=== PATIENT | female | born 1960 | race Caucasian/White ===

== ENCOUNTER 2017-10-16 08:51 | Day surgery (SDC) | payer MEDICARE, MEDICAID ==
[2017-10-12 10:47] LABS: BASOPHILS % (AUTO) 0.3 % (0-1); CLARITY,URINE CLEAR (Clear); COLOR,URINE YELLOW (Yellow); EOSINOPHILS # (AUTO) 0.2 X10'3 (0-0.9); EOSINOPHILS % (AUTO) 3.7 % (0-6); GLUCOSE, URINE NEGATIVE (Neg); KETONES,URINE NEGATIVE (Neg); LEUKOCYTE ESTERASE ,URINE NEGATIVE (Neg); LYMPHOCYTES # (AUTO) 2.5 X10'3 (1.1-4.8); LYMPHOCYTES % (AUTO) 39.9 % (21-51); MEAN CORPUSCULAR HEMOGLOBIN 29.8 PG (27.0-31.0); MEAN CORPUSCULAR HGB CONC 33.3 % (33.0-36.5); MEAN CORPUSCULAR VOLUME 89.3 FL (78-98); MEAN PLATELET VOLUME 8.3 FL (7.4-10.4); MONOCYTES # (AUTO) 0.5 X10'3 (0-0.9); MONOCYTES % (AUTO) 7.4 % (2-12); NEUTROPHILS # (AUTO) 3.1 X10'3 (1.8-7.7); NEUTROPHILS % (AUTO) 48.7 % (42-75); NITRITES, URINE NEGATIVE (Neg); OCCULT BLOOD,URINE MODERATE (Neg); PH,URINE 6.5 (4.8-8.0); PRE OP HEMATOCRIT 42.4 % (35.0-45.0); PRE OP HEMOGLOBIN 14.1 g/dL (12.0-16.0); PRE OP PLATELET COUNT 239 X10'3 (140-440); PROTEIN,URINE NEGATIVE (Neg); RED BLOOD COUNT 4.74 X10'6 (4.20-5.60); RED CELL DISTRIBUTION WIDTH 11.9 % (11.5-14.5); UROBILINOGEN,URINE 0.2 E.U/dL (0.2-1.0)
[2017-10-12 10:52] LABS: UA COLLECTION TYPE CLN CATCH MIDSTREAM
[2017-10-12 10:56] LABS: BACTERIA,URINE FEW /HPF (Neg); SQUAMOUS EPITHELIAL CELL,UR MODERATE /LPF (FEW); WBC,URINE 0-4 /HPF (0-4)
[2017-10-12 11:02] LABS: ALBUMIN 3.7 G/DL (3.4-5.0); ALBUMIN/GLOBULIN RATIO 1.1 (1.1-1.5); ALKALINE PHOSPHATASE 128 IU/L (46-116); BLOOD UREA NITROGEN 16 MG/DL (7-18); BUN/CREATININE RATIO 18.4 (6.6-38.0); CHLORIDE 107 MMOL/L (99-107); CREATININE 0.87 MG/DL (0.40-0.90); PRE OP ALT 21 U/L (30-65); PRE OP ANION GAP 10 (8-16); PRE OP AST 24 U/L (10-37); PRE OP BILIRUB, TOTAL 0.5 MG/DL (0.0-1.0); PRE OP GLUCOSE 144 MG/DL (70-104); PRE OP POTASSIUM 3.7 MMOL/L (3.4-5.1); PRE OP SODIUM 141 MMOL/L (135-145); TOTAL PROTEIN 7.1 G/DL (6.4-8.2); eGFR 67 ML/MIN
[~2017-10-16] VITALS: Ht 167.6 cm; Wt 89.6 kg
[2017-10-16] VITALS (19 sets, daily range): BP systolic 97–139; BP diastolic 35–84
[~2017-10-16 08:51] MED LIST: ESTR1TAB23 PO; LORA1TAB PO; LOSA25TA96 PO; MEDR2.5T PO; METH-603 PO; OMEP-50 PO; albuterol 2.5 MG/3 ML nebule NEB ONE; ceFAZolin inj. 2,000 MG in dextrose 5%-water 100 ML IV ONE; famotidine 20mg tablet PO ONE; ringers solution, lacted 1,000 ML IV SCH
[2017-10-16] MEDS ORDERED: propofol inj 20 ML IV ONE (10:48)
[2017-10-16] MEDS ORDERED: LIDOcaine 2% (20mg/ml) 5ml vial ONE (10:48)
[2017-10-16] MEDS ORDERED: midazolam 2 mg/2 ml injection ONE (10:49)
[2017-10-16] MEDS ORDERED: rocuronium 10mg/ml inj IV ONE (10:49)
[2017-10-16] MEDS ORDERED: fentaNYL /PF 50mcg/ml 5ml ampule ONE (10:49)
[2017-10-16] MEDS ORDERED: sevoflurane 250ml liquid IH ONE (11:26)
[2017-10-16] MEDS ORDERED: neostigmine in sterile water inj 5 MG/5 ML syringe IJ ONE (11:26)
[2017-10-16] MEDS ORDERED: clindamycin phosphate 150mg/ml inj. ONE (11:43)
[2017-10-16] MEDS ORDERED: glycopyrrolate 0.2mg/ml inj ONE (11:54)
[2017-10-16] MEDS ORDERED: ringers solution, lacted 1,000 ML IV SCH (12:12)
[2017-10-16] MEDS ORDERED: ondansetron/PF 4mg/2ml inj IV PRN (12:15)
[2017-10-16] MEDS ORDERED: HYDROmorphone inj. 0.5 MG/0.5 ML DISP.SYRIN IV PRN (12:15)
[2017-10-16] MEDS ORDERED: ondansetron/PF 4mg/2ml inj ONE (12:38)
[2017-10-16] MEDS: fentaNYL/PF 50MCG/1 ML 2ML syringe IV PRN ×4 (13:17→13:36)
[2017-10-16] MEDS ORDERED: HYDROmorphone 1 mg/ml syringe ONE (13:39)
[2017-10-16] MEDS: HYDROmorphone 1 mg/ml syringe IV PRN ×2 (13:46→13:52)
[2017-10-16] MEDS ORDERED: acetaminophen w/codeine (30MG) #3 tablet PO ONE (14:30)
== END 2017-10-16 15:16 | disposition home or self-care (01) ==
LOC: PAS 08:51
PROVIDERS: ATTEND Surgery
DX: K80.12 Calculus of gallbladder with acute and chronic cholecystitis without obstruction (principal); K66.0 Peritoneal adhesions (postprocedural) (postinfection); K82.8 Other specified diseases of gallbladder; J45.998 Other asthma; I10 Essential (primary) hypertension; M19.90 Unspecified osteoarthritis, unspecified site; E66.9 Obesity, unspecified; G89.29 Other chronic pain; F32.9 Major depressive disorder, single episode, unspecified; F41.9 Anxiety disorder, unspecified; Z88.2 Allergy status to sulfonamides; Z88.5 Allergy status to narcotic agent; Z68.31 Body mass index [BMI] 31.0-31.9, adult; Z88.6 Allergy status to analgesic agent; Z79.891 Long term (current) use of opiate analgesic; Z96.653 Presence of artificial knee joint, bilateral; Z90.89 Acquired absence of other organs; Z88.0 Allergy status to penicillin; Z79.01 Long term (current) use of anticoagulants; Z88.1 Allergy status to other antibiotic agents; Z88.8 Allergy status to other drugs, medicaments and biological substances; Z98.890 Other specified postprocedural states; Z79.899 Other long term (current) drug therapy
CPT/HCPCS: 36415; 47562; 80053; 81001; 85025; 85610; 85730; 93005; A6251; J0690; J1170; J2001; J2250; J2405; J2704; J2710; J3010; J3490; J7060; J7120; A7000

== ENCOUNTER 2018-03-21 18:13 | Emergency (ER) | payer MEDICARE, MEDICAID ==
[~2018-03-21] VITALS: Ht 167.6 cm; Wt 76.7 kg
[~2018-03-21 18:13] MED LIST changes: -albuterol 2.5 MG/3 ML nebule NEB ONE; -ceFAZolin inj. 2,000 MG in dextrose 5%-water 100 ML IV ONE; -famotidine 20mg tablet PO ONE; -ringers solution, lacted 1,000 ML IV SCH
[2018-03-21 19:58] VITALS: BP 115/76
[2018-03-21 20:27] LABS: BASOPHILS % (AUTO) 0 % (0-1); EOSINOPHILS # (AUTO) 0.1 X10'3 (0-0.9); EOSINOPHILS % (AUTO) 1.2 % (0-6); HEMATOCRIT 42.9 % (35.0-45.0); HEMOGLOBIN 14.6 g/dl (12.0-16.0); LYMPHOCYTES # (AUTO) 0.5 X10'3 (1.1-4.8); LYMPHOCYTES % (AUTO) 6.8 % (21-51); MEAN CORPUSCULAR HEMOGLOBIN 29.9 PG (27.0-31.0); MEAN CORPUSCULAR HGB CONC 33.9 % (33.0-36.5); MEAN CORPUSCULAR VOLUME 88.2 FL (78-98); MEAN PLATELET VOLUME 8.4 FL (7.4-10.4); MONOCYTES # (AUTO) 0.6 X10'3 (0-0.9); MONOCYTES % (AUTO) 7.4 % (2-12); NEUTROPHILS # (AUTO) 6.7 X10'3 (1.8-7.7); NEUTROPHILS % (AUTO) 84.6 % (42-75); PLATELET COUNT 216 X10'3 (140-440); RED BLOOD COUNT 4.87 X10'6 (4.20-5.60); RED CELL DISTRIBUTION WIDTH 13.1 % (11.5-14.5); WHITE BLOOD COUNT 7.9 X10'3 (4.5-11.0)
[2018-03-21 20:38] LABS: ALANINE AMINOTRANSFERASE 33 U/L (12-78); ALBUMIN 3.7 G/DL (3.4-5.0); ALKALINE PHOSPHATASE 120 IU/L (46-116); ANION GAP 9 (8-16); ASPARTATE AMINO TRANSFERASE 29 U/L (10-37); BILIRUBIN,TOTAL 0.4 MG/DL (0.1-1.0); BLOOD UREA NITROGEN 10 MG/DL (7-18); BUN/CREATININE RATIO 14.3 (6.6-38.0); CALCIUM 10.4 MG/DL (8.5-10.1); CHLORIDE 101 MMOL/L (99-107); GLUCOSE 110 MG/DL (70-104); POTASSIUM 3.8 MMOL/L (3.5-5.1); SODIUM 136 MMOL/L (135-145); TOTAL CARBON DIOXIDE 25.9 MMOL/L (24-32); TOTAL PROTEIN 7.5 G/DL (6.4-8.2); eGFR 86 ML/MIN
[2018-03-21] MEDS ORDERED: diphenhydrAMINE 25mg capsule PO ONE (21:15)
[2018-03-21] MEDS ORDERED: ketorolac tromethamine 15mg/ml inj. IM ONE (21:15)
[2018-03-21] MEDS ORDERED: proCHLORperazine 10 MG/2 ml inj IM ONE (21:15)
[2018-03-21] MEDS ORDERED: TAM75C PO (21:58)
== END 2018-03-21 22:48 | disposition home or self-care (01) ==
LOC: ER 18:13
DX: J09.X2 Influenza due to identified novel influenza A virus with other respiratory manifestations (principal); I10 Essential (primary) hypertension; G89.29 Other chronic pain; Z98.890 Other specified postprocedural states; Z88.0 Allergy status to penicillin; Z88.5 Allergy status to narcotic agent; Z88.2 Allergy status to sulfonamides; Z88.1 Allergy status to other antibiotic agents; Z88.8 Allergy status to other drugs, medicaments and biological substances; Z79.899 Other long term (current) drug therapy
CPT/HCPCS: 36415; 80053; 85025; 87502; 87503; 96372; 99284; J0780; J1885; Q0163

== ENCOUNTER 2021-11-09 20:27 | Emergency (ER) | payer MEDICARE, MEDICAID ==
[~2021-11-09 20:27] MED LIST changes: -OMEP-50 PO; +OMEP20CA16 PO
== END 2021-11-09 21:19 | disposition left against medical advice (07) ==
LOC: ER 20:29
DX: J00 Acute nasopharyngitis [common cold] (principal); Z53.21 Procedure and treatment not carried out due to patient leaving prior to being seen by health care provider